=== PATIENT | male | born 1975 | race Caucasian/White ===

== ENCOUNTER → 2018-07-11 06:57 | Outpatient (CLI) | payer BC, SELFPAY ==
[2018-07-11 07:37] LABS: Add Manual Diff / Slide Review NO; Basophils Percent Auto 0.6 % (0-2); Eosinophils Percent Auto 3.1 % (2-4); Hematocrit 42.7 % (41-53); Hemoglobin 15.6 g/dL (13.5-17.5); Mean Corpuscular HGB Conc 36.6 % (30-36); Mean Corpuscular Hemoglobin 31.3 PG (26-34); Mean Corpuscular Volume 85.4 fL (80-100); Monocytes Percent Auto 8.2 % (3-14); Neutrophils Absolute Auto 6500 /uL (3000-5900); Neutrophils Percent Auto 63.1 % (50-75); Platelet Count 217 X10^3/uL (150-400); Red Cell Distribution Width 12.8 % (11.6-14.8); White Blood Cell Count 10.4 X10^3/uL (4.5-11.0)
[2018-07-11 07:43] LABS: Alanine Aminotransferase 41 IU/L (21-72); Albumin 4.4 g/dL (3.5-5.0); Albumin Globulin Ratio 1.7 (1.0-2.8); Alkaline Phosphatase 46 U/L (38-126); Aspartate Aminotransferase 27 IU/L (17-59); BUN Creatinine Ratio 18.8 (6-22); Bilirubin Total 0.9 mg/dL (0.2-1.3); Blood Urea Nitrogen 15 mg/dL (9-20); Calcium 9.2 mg/dL (8.4-10.2); Carbon Dioxide 26 mmol/L (22-32); Chloride 104 mmol/L (98-107); Cholesterol 149 mg/dL (140-199); Estimated Glomerular Filt Rate > 60.0 mL/min (>60); Globulin 2.6 g/dL (1.7-4.1); Glucose 94 mg/dL (70-100); HDL Cholesterol 36 mg/dL (40-60); HEMOLYSIS < 15 (0-50); LDL Cholesterol Calculated 67 mg/dL (<100); Potassium 4.4 mmol/L (3.4-5.1); Sodium 142 mmol/L (137-145); Triglycerides 228 mg/dL (35-150)
== END ==
PROVIDERS: Family Provider Internal Medicine; PCP Internal Medicine; Visit Provider Internal Medicine
DX: Z00.00 Encounter for general adult medical examination without abnormal findings (principal); Z13.6 Encounter for screening for cardiovascular disorders
CPT/HCPCS: 36415; 80053; 80061; 85025

== ENCOUNTER → 2020-01-05 13:51 | Outpatient (CLI) | payer BC, SELFPAY ==
[2020-01-06 03:41] LABS: COVID19 Sendout Not Detected (Not Detect)
== END ==
PROVIDERS: Family Provider Internal Medicine; PCP Internal Medicine; Visit Provider Physician Assistant
DX: Z01.812 Encounter for preprocedural laboratory examination (principal)
CPT/HCPCS: 87635

== ENCOUNTER 2020-01-08 08:26 | Day surgery (SDC) | payer BC, SELFPAY ==
[2020-01-06 12:43] VITALS: BMI 25.5
[2020-01-08] VITALS (8 sets, daily range): BP systolic 125–147; BP diastolic 68–88; PULSE 61–88; RESP 8–20; TEMP 35.8–37.1; O2SAT 97–100; BMI 24.7
[2020-01-08] MEDS: ACETAMINOPHEN 325 MG TABLET 975 MG PO (08:51)
[2020-01-08] MEDS: GABAPENTIN 300 MG CAPSULE PO (08:52)
[2020-01-08] MEDS: CELECOXIB 200 MG CAPSULE 400 MG PO (08:52)
[2020-01-08] MEDS: LACTATED RINGERS 1,000 ML 42 ML IV (08:53)
--- NOTE | 2020-01-08 09:33 | PM.PREOP ---
Pre-operative Note COVID-19 COVID-19 status: Negative Result date/Date tested (Pos, Neg/Pending): 01/05/20 Interval Note History & Physical reviewed/Exam performed by Physician: Yes Changes to H&P: No
[2020-01-08] MEDS: CEFAZOLIN 2 GM/100 ML FROZ.PIGGY IV (09:50)
--- NOTE | 2020-01-08 10:38 | SUR.OPER ---
Supine on padded OR bed, head on pillow, legs uncrossed, safety belt at thigh, tape over blanket over lower legs.[facility]RMS SECURED AT SIDES.
[2020-01-08] MEDS: BUPIVACAINE 0.25% W/ EPI 30 ML VIAL 60 ML INJ (10:47)
[2020-01-08] MEDS: LACTATED RINGERS 1,000 ML 120 ML IV (11:13)
--- NOTE | 2020-01-08 12:21 | PM.OP.1 ---
Operative Date/Time/Diagnoses Date of procedure: 01/08/20 Time of procedure: 12:22 Pre-op diagnosis: right possible left inguinal hernia Post-op diagnosis: other (bilateral inguinal hernias) Procedure & Clinicians Procedure: laparoscopic bilateral inguinal hernia repair with mesh Same procedure as scheduled: Yes Indications: Symptomatic right inguinal hernia, left inguinal canal laxity Surgeon: Kelly Knapp Yes if Unassisted: Yes Anesthesia Type: General Operative Notes Findings: Bilateral indirect inguinal hernias, right greater than left Specimen(s): none sent Prosthetic devices, grafts, tissues, transplants, or devices: Large size BARD 3D Max mesh on the right side; Medium size BARD 3D Max mesh on the left side Estimated Blood Loss (mL): 3 Procedure in detail: The patient was brought into the operating room and placed supine on the OR table. Sequential compression devices were placed on both legs and turned on. Appropriate perioperative antibiotics were given prior to the start of surgery. General anesthesia was induced the patient was intubated. A Covington catheter was placed sterilely in the bladder. The abdomen was prepped and draped in sterile fashion. Surgical time-out was conducted. Local anesthetic was injected under the skin just superior to the umbilicus and a 5 mm vertical incision was made at this site. The umbilical stalk was grasped with a Nava and elevated. A Veress needle was passed through the fascia into proper position. The position was tested with a saline drop test which was appropriate for intra-abdominal Veress needle placement. The abdomen was then insufflated in the usual fashion. Once insufflated to 15 mm Hg the Veress needle was removed and a 5 mm optical trocar was placed under direct vision using a 5 mm 30 degree scope. Once the camera was inside the abdomen I took a look around. There was no injury from port placement. Two additional ports were placed in a similar fashion in the right and left mid clavicular line at the level of the umbilicus, one handbreadth lateral to the umbilicus. The umbilical port was upsized to a 10mm port. Attention was turned to the pelvis, and both inguinal regions were evaluated. On the left side there was a small indirect left inguinal hernia. On the right side there was a deep indirect inguinal hernia. Beginning on the [right] side local anesthetic was in the infiltrated into the abdominal wall using 0.25% Marcaine with epi, in the region of the expected peritoneal incision. Metzenbaum scissors attached to cautery were then used to incise the peritoneum transversely from the midline laterally to the ASIS, 10 cm superior to the inguinal hernia defect. The peritoneal flap was developed down to the inguinal hernia defects. When I reached the defects I found the deep indirect defect, and a small direct defect. Once the flap had been fully developed and the cord structures were completely exposed, and the hernia defect had been fully evaluated, I then exposed the pubic tubercle and pushed down the bladder so that there was space for good mesh placement. A large 3DMax macro porous mesh was then brought into the field. I placed it through the 10 mm port and positioned it within the surgical defect covering the direct, indirect, and femoral space with 5 cm overlap in each direction. I then secured the mesh to the pubic tubercle in 2 locations using dissolvable surgical tacks. I then secured the mesh to the abdominal wall at its superior edge, far away from the triangle of doom and the triangle of pain. These tacks were placed avoiding the epigastric vessels as well. Once the mesh was secured in place I brought up the peritoneal flap. There was no clam shelling or bending of the mesh when the peritoneal flap was brought up. I then secured the peritoneum up to the abdominal wall using the same surgical tacker, with dissolvable tacks. There was no gapping of the peritoneal flap or exposed mesh. There was a redundant hernia sac, which was cinched together using a PDS endoloop to avoid bowel invaginating into the hernia sac should did invert upon itself. Attention was then turned to the [left] side. Local anesthetic was in the infiltrated into the abdominal wall using 0.25% Marcaine with epi, in the region of the expected peritoneal incision. Metzenbaum scissors attached to cautery were then used to incise the peritoneum transversely from the midline laterally to the ASIS, 10 cm superior to the inguinal hernia defect. The peritoneal flap was developed down to the inguinal hernia defect. When I reached the defect I found there was a small indirect inguinal hernia, and no direct defect or femoral defect was seen. Once the flap had been fully developed and the cord structures were completely exposed, and the hernia defect had been fully evaluated, I then exposed the pubic tubercle and push down the bladder so that there was space for good mesh placement. A large 3DMax macro porous mesh was then brought into the field. I placed it through the 10 mm port and positioned it within the surgical defect covering the direct, indirect, and femoral space with 5 cm overlap in each direction. I then secured the mesh to the pubic tubercle in 2 locations using dissolvable surgical tacks. I then secured the mesh to the abdominal wall at its superior edge, far away from the triangle of doom and the triangle of pain. These tacks were placed avoiding the epigastric vessels as well. Once the mesh was secured in place I brought up the peritoneal flap. There was no clam shelling or bending of the mesh when the peritoneal flap was brought up. I then secured the peritoneum up to the abdominal wall using the same surgical tacker, with dissolvable tacks. There was no gapping of the peritoneal flap or exposed mesh. At this point the mesh was well positioned, secured, and well covered. There was no exposed mesh, no bleeding, and the peritoneal flaps were in good position. I then infiltrated the abdominal wall in the area of dissection with the remaining local anesthetic for total of [60 mL] of 0.25% Marcaine for the case. At this point the umbilical port site was closed with 0 Vicryl suture in the fascia using a Josep-Dane suture Passer. Insufflation was then removed from the abdomen, and the umbilical port site was closed with 3-0 Vicryl in the subcutaneous layers, and 4 Monocryl in the skin. The other 2 port sites were closed with 4 Monocryl in the skin. Each port site was sealed with Dermabond. Local anesthetic was given at each of the port sites and in the fascia. This concluded the procedure. At this point the needle sponge and instrument counts were correct. Patient was awakened from anesthesia and extubated. The Covington catheter was removed, [and the testicles were brought down to ensure they were in proper position]. The patient was transferred to the postanesthesia care unit in stable condition. Complications: none Post-operative Condition: stable Disposition: PACU
[2020-01-08] MEDS: OXYCODONE IR 5 MG TABLET PO (12:39)
--- NOTE | 2020-01-08 13:47 | SUR.PHASEII ---
Discharged patient home in stable condition with prescription and discharge papers. Home with spouse.
== END 2020-01-08 13:47 | disposition home or self-care (01) ==
PROVIDERS: PCP Internal Medicine; Referring Provider Surgery; Visit Provider Surgery
PROC: (CPT 49650; principal; 2020-01-08 09:45)
DX: K40.90 Unilateral inguinal hernia, without obstruction or gangrene, not specified as recurrent (principal)
CPT/HCPCS: 49650; C1781; J0330; J0690; J1100; J2250; J2405; J2704; J3010

== ENCOUNTER → 2020-01-15 07:34 | Outpatient (CLI) | payer BC, SELFPAY ==
[2020-01-15 09:03] LABS: Alanine Aminotransferase 36 IU/L (<50); Albumin 4.5 g/dL (3.5-5.0); Albumin Globulin Ratio 1.9 (1.0-2.8); Alkaline Phosphatase 43 U/L (38-126); Aspartate Aminotransferase 25 IU/L (17-59); BUN Creatinine Ratio 21.1 (6-22); Bilirubin Total 0.9 mg/dL (0.2-1.3); Blood Urea Nitrogen 15 mg/dL (9-20); Calcium 9.6 mg/dL (8.4-10.2); Carbon Dioxide 28 mmol/L (22-32); Chloride 102 mmol/L (98-107); Cholesterol 154 mg/dL (140-199); Estimated Glomerular Filt Rate > 60.0 mL/min (>60); Globulin 2.4 g/dL (1.7-4.1); Glucose 85 mg/dL (70-100); HDL Cholesterol 37 mg/dL (40-60); HEMOLYSIS < 15 (0-50); LDL Cholesterol Calculated 90 mg/dL (<100); Potassium 4.4 mmol/L (3.4-5.1); Sodium 137 mmol/L (137-145); Total Protein 6.9 g/dL (6.3-8.2); Triglycerides 133 mg/dL (35-150)
== END ==
PROVIDERS: PCP Internal Medicine; Referring Provider Internal Medicine; Visit Provider Internal Medicine
DX: Z13.1 Encounter for screening for diabetes mellitus (principal); Z13.220 Encounter for screening for lipoid disorders; Z13.6 Encounter for screening for cardiovascular disorders
CPT/HCPCS: 36415; 80053; 80061

== ENCOUNTER 2024-06-21 07:19 | Day surgery (SDC) | payer BC, SELFPAY ==
[2024-06-21 07:44] VITALS: BP 145/81; PULSE 67; RESP 16; TEMP 36.3; O2SAT 99
--- NOTE | 2024-06-21 08:15 | PM.HP.1 ---
History of Present Illness History of Present Illness Date Patient Seen: 06/21/24 Time Patient Seen: 08:15 Chief complaint: [facility] – [place] Narrative: 49-year-old white male, otherwise healthy presents for initial screening colonoscopy. He does have intermittent blood per rectum presumed to be hemorrhoids but decided against card screening for that reason. No unexplained weight loss, family history of colon cancer in his maternal grandfather, no history of Crohn's disease or ulcerative colitis. [facility] Medical History (Updated 06/21/24 @ 08:17 by Wallace Brown MD) Colon cancer screening Cardiac murmur (01/17/12) Vision disorder Chicken pox (~1996) Surgical History S/P bilateral inguinal hernia repair (01/08/20) History of knee surgery (~1989) [place] teeth removed (~04/2012) Family History Grandfather Cancer Grandmother Heart disease Social History household members: spouse Smoking Status: Former smoker alcohol intake: current Meds Home Medications and Allergies Home Medications Medication Instructions Recorded Confirmed Type ibuprofen 200 mg tablet 200 mg PO PRN PRN Pain ##0 01/18/12 06/21/24 History timolol 0.5 % eye drops 1 drp EYE-BOTH DAILY 05/27/24 06/21/24 History doxylamine succinate 25 mg tablet 25 mg PO BEDTIME PRN Sleep 06/21/24 06/21/24 History (Unisom (doxylamine)) Allergies Allergy/AdvReac Type Severity Reaction Status Date / Time Penicillins Allergy Severe RASH/SOB Verified 06/21/24 07:43 Review of Systems Review of Systems ROS: Yes All systems reviewed with the patient and are negative except as otherwise documented Constitutional Constitutional: Reports system reviewed and no additional complaints, except as documented Eyes Eyes: Reports system reviewed and no additional complaints, except as documented ENT Ears, Nose, Mouth, and Throat: Yes system reviewed and no additional complaints, except as documented Respiratory Respiratory: Reports system reviewed and no additional complaints, except as documented Gastrointestinal Gastrointestinal: Reports system reviewed and no additional complaints, except as documented and Reports hematochezia Genitourinary Genitourinary: Reports system reviewed and no additional complaints, except as documented Musculoskeletal Musculoskeletal: Reports system reviewed and no additional complaints, except as documented Integumentary/Breasts Skin/Breast: Reports system reviewed and no additional complaints, except as documented Neurologic Neurologic: Reports system reviewed and no additional complaints, except as documented Psychiatric Psychiatric: Reports system reviewed and no additional complaints, except as documented Endocrine Endocrine: Reports system reviewed and no additional complaints, except as documented Hematologic/Lymphatic Hematologic/Lymphatic: Reports system reviewed and no additional complaints, except as documented Allergic/Immunologic Allergic/Immunologic: Reports system reviewed and no additional complaints, except as documented Exam Vital Signs (past 8 hours): - 06/21/24 07:44 Temperature 97.3 F L Pulse Rate 67 Respiratory Rate 16 Blood Pressure 145/81 H Pulse Oximetry 99 Oxygen Delivery Method Room Air Oxygen Delivery Method Room Air Narrative Exam Narrative: Gen: NAD, sitting comfortably in bed, appears well HEENT: Sclera are anicteric, head is normocephalic and atraumatic, trachea is midline. CV: RRR, no JVD Resp: clear to auscultation bilaterally, equal chest wall movement bilaterally Abd: soft, nontender, normoactive bowel sounds Ext: no edema, full range of motion Neuro: Cranial nerves II-XII grossly intact, no focal deficits Skin: No erythema or ecchymosis Assessment & Plan Assessment and plan (1) Colon cancer screening: Status: Acute Assessment & Plan narrative: Patient presents for initial screening colonoscopy Risks, benefits, alternatives to colonoscopy explained, including but not limited to bowel perforation or other serious complication requiring surgery at less than 1 in 5000 colonoscopies, abdominal pain, cramping or bleeding and less than 1% of colonoscopies, and the chances that we find a diagnosis that would require further intervention of about 2%. Patient agrees to proceed. Time-Based Coding :: [TOTAL MINUTES] spent with patient and on the chart (including review of chart, obtaining history, exam, reviewing outside data, placing orders, documenting exam and treatment plan, and counseling patient) on [DATE].
--- NOTE | 2024-06-21 08:34 | PM.OP.COLON ---
Operative Date/Time/Diagnoses Date of procedure: 06/21/24 Time of procedure: 08:34 Pre-op diagnosis: Colon cancer screening Post-op diagnosis: same Procedure & Clinicians Study performed: Screening colonoscopy Same procedure as scheduled: Yes Indications: Colon cancer screening, intermittent blood per rectum presumed to be hemorrhoids Surgeon: Wallace Brown Procedure Notes SCOAP/Timeout: Performed Procedure in detail: Time-out was performed. Mac was induced. Patient was placed in left lateral decubitus position. The perineum was inspected without any gross abnormality. Lubricated pediatric colonoscope was inserted and advanced to the cecum. The terminal ileum was intubated. The colonoscope was withdrawn slowly inspecting the circumference of the colon. Very small polyps may have been missed, prep quality was adequate. Retroflexed view of the rectum showed small, non prolapsed nonbleeding internal hemorrhoids. The scope was withdrawn the patient was taken to PACU in good condition. Scope withdrawal time: 7 Sedation minutes: 12 Findings: internal hemorrhoids (Nonbleeding, non prolapsed) Specimen(s): none sent Complications: none Impression: Time-out was performed. Mac was induced. Patient was placed in left lateral decubitus position. The perineum was inspected without any gross abnormality. Lubricated pediatric colonoscope was inserted and advanced to the cecum. The terminal ileum was intubated. The colonoscope was withdrawn slowly inspecting the circumference of the colon. Very small polyps may have been missed, prep quality was adequate. Retroflexed view of the rectum showed small, non prolapsed nonbleeding internal hemorrhoids. The scope was withdrawn the patient was taken to PACU in good condition. Post-procedure Recommendations: Colonoscopy in 10 years and High fiber diet Follow up: as needed Disposition: PACU
[2024-06-21 08:36] VITALS: BP 116/76; PULSE 71; RESP 18; TEMP 36.3; O2SAT 98
[2024-06-21 08:41] VITALS: BP 121/83; PULSE 68; RESP 17; O2SAT 99
[2024-06-21 08:46] VITALS: BP 125/78; PULSE 70; RESP 16; TEMP 36.6; O2SAT 100
[2024-06-21 08:51] VITALS: BP 122/80; PULSE 62; RESP 16; TEMP 37.1; O2SAT 100
== END 2024-06-21 09:13 | disposition home or self-care (01) ==
PROVIDERS: PCP Internal Medicine; Referring Provider Surgery; Visit Provider Surgery
PROC: 0DJD8ZZ Inspection of Lower Intestinal Tract, Via Natural or Artificial Opening Endoscopic (ICD-10-PCS; CPT 45378; principal; 2024-06-21 08:30)
DX: Z12.11 Encounter for screening for malignant neoplasm of colon (principal); K64.8 Other hemorrhoids
CPT/HCPCS: 45378; J2704